=== PATIENT | male | born 1950 | race Caucasian/White ===

== ENCOUNTER 2019-09-16 06:18 | Inpatient (IN) ==
[2019-09-16 06:43] LABS: Basophils # 0.1 10*3/uL (0.0-0.2); Basophils % 0.7 % (0.0-0.8); Eosinophils % 0.1 % (0.00-10.9); Hematocrit 45.6 VOL% (42.0-52.0); Hemoglobin 15.3 GM/DL (14.0-18.0); Immature Granulocytes % 0.8 %; Immature Granulocytes Absolute 0.07 #; Lymphocytes # 1.5 10*3/uL (1.4-4.0); Mean Corpuscular HGB Conc 33.6 GM/DL (32-36); Mean Corpuscular Volume 91.4 FL (87-102); Mean Platelet Volume 9.6 FL (9.6-12.0); Monocytes % 10.4 % (1.7-12.7); Platelet Count 195 T/CUMM (130-400); Red Blood Count 4.99 MC/CUMM (3.8-5.5)
[2019-09-16] MEDS ORDERED: ACETAMINOPHEN 500 MG TABLET ONE (06:43)
[2019-09-16] MEDS ORDERED: SODIUM CHLORIDE 0.9% 1,000 ML IV STA ×2 (06:54→07:03)
[2019-09-16] MEDS ORDERED: ACETAMINOPHEN 500 MG TABLET PO STA (06:54)
[2019-09-16] MEDS ORDERED: dilTIAZem Drip 125 MG/125 ML PREMIX IV ONE (07:02)
[2019-09-16 07:03] LABS: Albumin 3.7 G/DL (3.4-5.0); Bilirubin,Total 0.5 MG/DL (0.2-1.0); Calcium 8.7 MG/DL (8.5-10.1); Osmolality,Calculated 286.1 MOS/KG (273-304); Total Protein 7.2 G/DL (6.4-8.3)
[2019-09-16] MEDS ORDERED: DILTIAZEM 50 MG/10 ML VIAL IV STA (07:03)
[2019-09-16 07:05] LABS: Troponin I 0.415 NG/ML (0.00-0.045)
[2019-09-16] MEDS ORDERED: dilTIAZem Drip 125 MG/125 ML PREMIX IV SCH (07:30)
[2019-09-16 07:32] LABS: PT Patient Result 10.4 SECS (9.6-12.2)
[2019-09-16 07:45] LABS: Apearance,Urine CLEAR (Clear); Bilirubin,Urine Negative (Negative); Blood, Urine Moderate mg/dL (Negative); Glucose,Urine (UA) Negative (Negative); Hyaline Casts,Urine 34 /LPF (0-3); Ketones,Urine Negative (Negative); Mucus,Urine Moderate /LPF (Occasional); Nitrite,Urine Negative (Negative); Protein,Urine Negative; RBC,Urine <1 /HPF (0-4); Squamous Epithelial Cell,Urine Occasional /HPF (0-10); Urine Color Yellow (Yellow); Urine Specific Gravity 1.023 (1.001-1.035); Urine Urobilinogen < 2.0 EU/DL (0.2-1.0); WBC,Urine <1 /HPF (0-6)
[2019-09-16] MEDS ORDERED: LACTULOSE 20 GM/30 ML UDCUP PO PRN (08:21)
[2019-09-16] MEDS ORDERED: ONDANSETRON 4 MG/2 ML VIAL IV PRN (08:21)
[2019-09-16 10:23] LABS: Risk Ratio 4.65; Thyroid Stimulating Hormone 0.796 uIU/ml (0.358-3.74); VLDL CHOLESTEROL 29.6 MG/DL
[2019-09-16] MEDS: SODIUM CHLORIDE 0.9% 1,000 ML IV SCH (11:01)
[2019-09-16] MEDS: CIPROFLOXACIN INJ 400 MG in PREMIX 1 EACH IV SCH (11:01)
[2019-09-16] MEDS: ENOXAPARIN 40 MG/0.4 ML SYRINGE SUBCUT SCH (11:01)
[2019-09-16] MEDS: metroNIDAZOLE INJ 500 MG in PREMIX 1 EACH IV SCH ×2 (12:50→18:07)
[2019-09-16] MEDS ORDERED: ASPIRIN EC 81 MG TABLET PO PRN (13:15)
[2019-09-16] MEDS ORDERED: NITROGLYCERIN SL 0.4 MG TABLET SL PRN (13:50)
[2019-09-16 16:36] LABS: Troponin I 0.452 NG/ML (0.00-0.045)
[2019-09-16] MEDS: ACETAMINOPHEN 325 MG TABLET PO PRN (18:58)
[2019-09-16] MEDS: DILTIAZEM CD 120 MG CAPSULE PO SCH (22:22)
[2019-09-17] MEDS: ACETAMINOPHEN 325 MG TABLET PO PRN ×3 (03:11→20:48)
[2019-09-17] MEDS: metroNIDAZOLE INJ 500 MG in PREMIX 1 EACH IV SCH ×2 (03:11→11:04)
[2019-09-17] MEDS: SODIUM CHLORIDE 0.9% 1,000 ML IV SCH ×2 (04:04)
[2019-09-17 04:05] LABS: Basophils % 0.6 % (0.0-0.8); Eosinophils # 0.1 10*3/uL (0.0-0.87); Eosinophils % 1.5 % (0.00-10.9); Hematocrit 39.5 VOL% (42.0-52.0); Immature Granulocytes % 0.3 %; Immature Granulocytes Absolute 0.02 #; Lymphocytes # 1.7 10*3/uL (1.4-4.0); Mean Corpuscular HGB Conc 32.9 GM/DL (32-36); Mean Corpuscular Volume 92.1 FL (87-102); Mean Platelet Volume 10.6 FL (9.6-12.0); Neutrophils % 60.6 % (38.7-73.9); Platelet Count 166 T/CUMM (130-400); Red Blood Count 4.29 MC/CUMM (3.8-5.5); Red Cell Distribution Width 13.2 % (9.3-17.3); White Blood Count 6.8 T/CUMM (4-12)
[2019-09-17 04:17] LABS: Calcium 8.3 MG/DL (8.5-10.1); Osmolality,Calculated 286.7 MOS/KG (273-304)
[2019-09-17] MEDS ORDERED: BENZONATATE 100 MG CAPSULE PO PRN (08:02)
[2019-09-17] MEDS: ASPIRIN EC 81 MG TABLET PO SCH (08:39)
[2019-09-17] MEDS: CIPROFLOXACIN INJ 400 MG in PREMIX 1 EACH IV SCH (08:39)
[2019-09-17] MEDS: ENOXAPARIN 40 MG/0.4 ML SYRINGE SUBCUT SCH (08:40)
[2019-09-17] MEDS: PIPERACILLIN/TAZOBACTAM 3,375 MG in SODIUM CHLORIDE 0.9% 100 ML IV SCH ×2 (11:04→18:03)
[2019-09-17] MEDS: ALBUTEROL 0.63 MG/3 ML NEB RESP TX SCH ×2 (13:08→19:03)
[2019-09-17] MEDS: DILTIAZEM CD 120 MG CAPSULE PO SCH (20:47)
[2019-09-18] MEDS: ALBUTEROL 0.63 MG/3 ML NEB RESP TX SCH ×4 (00:13→18:55)
[2019-09-18] MEDS: PIPERACILLIN/TAZOBACTAM 3,375 MG in SODIUM CHLORIDE 0.9% 100 ML IV SCH ×3 (03:15→19:36)
[2019-09-18 04:40] LABS: Basophils % 0.7 % (0.0-0.8); Eosinophils # 0.2 10*3/uL (0.0-0.87); Eosinophils % 4.3 % (0.00-10.9); Hematocrit 38.7 VOL% (42.0-52.0); Hemoglobin 12.9 GM/DL (14.0-18.0); Immature Granulocytes % 0.5 %; Immature Granulocytes Absolute 0.02 #; Lymphocytes # 1.1 10*3/uL (1.4-4.0); Lymphocytes % 27.5 % (21.2-54.2); Mean Corpuscular HGB Conc 33.3 GM/DL (32-36); Mean Corpuscular Volume 90.4 FL (87-102); Mean Platelet Volume 9.7 FL (9.6-12.0); Monocytes % 10.9 % (1.7-12.7); Neutrophils % 56.1 % (38.7-73.9); Platelet Count 157 T/CUMM (130-400); Red Blood Count 4.28 MC/CUMM (3.8-5.5); Red Cell Distribution Width 12.9 % (9.3-17.3); White Blood Count 4.1 T/CUMM (4-12)
[2019-09-18 05:01] LABS: Calcium 8.5 MG/DL (8.5-10.1); Osmolality,Calculated 284.8 MOS/KG (273-304)
[2019-09-18] MEDS: ASPIRIN EC 81 MG TABLET PO SCH (09:54)
[2019-09-18] MEDS: ENOXAPARIN 40 MG/0.4 ML SYRINGE SUBCUT SCH (09:54)
[2019-09-18] MEDS: CALCIUM CARBONATE CHEW 500 MG TABLET PO PRN (17:20)
[2019-09-18] MEDS: SIMETHICONE CHEW 125 MG TABLET PO PRN (17:20)
[2019-09-18] MEDS: DILTIAZEM CD 120 MG CAPSULE PO SCH (21:52)
[2019-09-19] MEDS: ALBUTEROL 0.63 MG/3 ML NEB RESP TX SCH ×4 (00:24→19:41)
[2019-09-19] MEDS: PIPERACILLIN/TAZOBACTAM 3,375 MG in SODIUM CHLORIDE 0.9% 100 ML IV SCH ×3 (03:02→18:33)
[2019-09-19 05:25] LABS: Basophils % 0.9 % (0.0-0.8); Eosinophils # 0.3 10*3/uL (0.0-0.87); Eosinophils % 5.8 % (0.00-10.9); Hematocrit 40.5 VOL% (42.0-52.0); Hemoglobin 13.6 GM/DL (14.0-18.0); Immature Granulocytes % 0.5 %; Immature Granulocytes Absolute 0.02 #; Lymphocytes # 1.5 10*3/uL (1.4-4.0); Lymphocytes % 35.5 % (21.2-54.2); Mean Corpuscular HGB Conc 33.6 GM/DL (32-36); Mean Corpuscular Volume 90.4 FL (87-102); Mean Platelet Volume 9.7 FL (9.6-12.0); Monocytes % 14.7 % (1.7-12.7); Neutrophils % 42.6 % (38.7-73.9); Platelet Count 189 T/CUMM (130-400); Red Blood Count 4.48 MC/CUMM (3.8-5.5); Red Cell Distribution Width 12.8 % (9.3-17.3); White Blood Count 4.3 T/CUMM (4-12)
[2019-09-19] MEDS ORDERED: FAMOTIDINE 20 MG TABLET PO ONE (06:00)
[2019-09-19 06:04] LABS: Calcium 8.9 MG/DL (8.5-10.1)
[2019-09-19] MEDS: ASPIRIN EC 81 MG TABLET PO SCH (08:42)
[2019-09-19] MEDS: ENOXAPARIN 40 MG/0.4 ML SYRINGE SUBCUT SCH (08:42)
[2019-09-19] MEDS ORDERED: LIDOCAINE 1%/EPI INJ 20 ML VIAL ONE (12:31)
[2019-09-19] MEDS ORDERED: TISSUE ADHESIVE 1 EACH APPLICATOR TOP ONE (12:31)
[2019-09-19] MEDS ORDERED: BUPIVACAINE MPF 0.25% 30 ML VIAL ONE (12:32)
[2019-09-19] MEDS ORDERED: diphenhydrAMINE 50 MG/1 ML VIAL IV PRN (15:00)
[2019-09-19] MEDS ORDERED: PROMETHAZINE INJ 25 MG in SODIUM CHLORIDE 0.9% 50 ML IV PRN (15:00)
[2019-09-19] MEDS ORDERED: ONDANSETRON 4 MG/2 ML VIAL IV PRN (15:00)
[2019-09-19] MEDS ORDERED: MEPERIDINE 25 MG/1 ML VIAL IV PRN (15:00)
[2019-09-19] MEDS ORDERED: LIDOCAINE 2% 5 ML VIAL ONE (15:01)
[2019-09-19] MEDS ORDERED: MIDAZOLAM 2 MG/2 ML VIAL ONE (15:01)
[2019-09-19] MEDS ORDERED: PROPOFOL 200 MG/20 ML VIAL IV ONE (15:01)
[2019-09-19] MEDS ORDERED: SEVOFLURANE 1 UNIT/15 MINUTE INH ONE (15:01)
[2019-09-19] MEDS ORDERED: fentaNYL 100 MCG/2 ML VIAL ONE (15:01)
[2019-09-19] MEDS ORDERED: ETOMIDATE 40 MG/20 ML VIAL IV ONE (15:01)
[2019-09-19] MEDS ORDERED: GLYCOPYRROLATE 0.4 MG/2 ML VIAL ONE ×2 (15:02)
[2019-09-19] MEDS ORDERED: NEOSTIGMINE 10 MG/10 ML VIAL ONE (15:02)
[2019-09-19] MEDS ORDERED: ROCURONIUM 100 MG/10 ML VIAL IV ONE (15:02)
[2019-09-19] MEDS ORDERED: SUCCINYLCHOLINE 200 MG/10 ML VIAL ONE (15:02)
[2019-09-19] MEDS ORDERED: PHENYLEPHRINE 1 MG/10 ML SYRINGE IV ONE (15:02)
[2019-09-19] MEDS ORDERED: MEPERIDINE 25 MG/1 ML VIAL ONE (15:08)
[2019-09-19] MEDS ORDERED: ONDANSETRON 4 MG/2 ML VIAL ONE (15:08)
[2019-09-19] MEDS: SIMETHICONE CHEW 125 MG TABLET PO PRN (16:50)
[2019-09-19 17:04] LABS: Albumin 3.1 G/DL (3.4-5.0); Bilirubin,Direct 0.5 MG/DL (0.0-0.20); Bilirubin,Indirect 0.8 MG/DL (0.0-1.0); Bilirubin,Total 1.3 MG/DL (0.2-1.0); Total Protein 6.5 G/DL (6.4-8.3)
[2019-09-19] MEDS: CALCIUM CARBONATE CHEW 500 MG TABLET PO PRN (18:44)
[2019-09-19] MEDS: DILTIAZEM CD 120 MG CAPSULE PO SCH (21:52)
[2019-09-20] MEDS: ALBUTEROL 0.63 MG/3 ML NEB RESP TX SCH ×4 (00:28→21:02)
[2019-09-20] MEDS: PIPERACILLIN/TAZOBACTAM 3,375 MG in SODIUM CHLORIDE 0.9% 100 ML IV SCH ×3 (04:30→19:00)
[2019-09-20 07:37] LABS: Basophils # 0.1 10*3/uL (0.0-0.2); Basophils % 0.8 % (0.0-0.8); Eosinophils # 0.2 10*3/uL (0.0-0.87); Eosinophils % 3.7 % (0.00-10.9); Hematocrit 43.9 VOL% (42.0-52.0); Hemoglobin 14.6 GM/DL (14.0-18.0); Immature Granulocytes % 0.6 %; Immature Granulocytes Absolute 0.04 #; Lymphocytes # 1.8 10*3/uL (1.4-4.0); Mean Corpuscular HGB Conc 33.3 GM/DL (32-36); Mean Corpuscular Volume 90.5 FL (87-102); Mean Platelet Volume 9.3 FL (9.6-12.0); Monocytes % 10.1 % (1.7-12.7); Neutrophils % 56.8 % (38.7-73.9); Platelet Count 227 T/CUMM (130-400); Red Blood Count 4.85 MC/CUMM (3.8-5.5); Red Cell Distribution Width 12.7 % (9.3-17.3); White Blood Count 6.6 T/CUMM (4-12)
[2019-09-20 08:04] LABS: Albumin 3.6 G/DL (3.4-5.0); Bilirubin,Total 1.2 MG/DL (0.2-1.0); Calcium 9.1 MG/DL (8.5-10.1); Osmolality,Calculated 272.8 MOS/KG (273-304); Total Protein 7.1 G/DL (6.4-8.3)
[2019-09-20] MEDS: ENOXAPARIN 40 MG/0.4 ML SYRINGE SUBCUT SCH (10:05)
[2019-09-20] MEDS: ASPIRIN EC 81 MG TABLET PO SCH (10:05)
[2019-09-20] MEDS: DILTIAZEM CD 120 MG CAPSULE PO SCH (20:20)
[2019-09-21] MEDS: ALBUTEROL 0.63 MG/3 ML NEB RESP TX SCH ×4 (00:51→20:18)
[2019-09-21] MEDS: PIPERACILLIN/TAZOBACTAM 3,375 MG in SODIUM CHLORIDE 0.9% 100 ML IV SCH ×3 (02:58→18:06)
[2019-09-21 05:13] LABS: Basophils # 0.1 10*3/uL (0.0-0.2); Basophils % 1.1 % (0.0-0.8); Eosinophils # 0.2 10*3/uL (0.0-0.87); Eosinophils % 4.5 % (0.00-10.9); Hematocrit 40.3 VOL% (42.0-52.0); Hemoglobin 13.5 GM/DL (14.0-18.0); Immature Granulocytes % 1.3 %; Immature Granulocytes Absolute 0.06 #; Lymphocytes # 1.5 10*3/uL (1.4-4.0); Lymphocytes % 32.2 % (21.2-54.2); Mean Corpuscular HGB Conc 33.5 GM/DL (32-36); Mean Corpuscular Volume 90.6 FL (87-102); Mean Platelet Volume 10.1 FL (9.6-12.0); Monocytes % 11.3 % (1.7-12.7); Neutrophils % 49.6 % (38.7-73.9); Platelet Count 222 T/CUMM (130-400); Red Blood Count 4.45 MC/CUMM (3.8-5.5); Red Cell Distribution Width 12.6 % (9.3-17.3); White Blood Count 4.7 T/CUMM (4-12)
[2019-09-21 05:36] LABS: Calcium 8.5 MG/DL (8.5-10.1); Osmolality,Calculated 275.5 MOS/KG (273-304)
[2019-09-21 05:40] LABS: Albumin 3.2 G/DL (3.4-5.0); Bilirubin,Direct 0.12 MG/DL (0.0-0.20); Bilirubin,Indirect 0.9 MG/DL (0.0-1.0); Total Protein 6.6 G/DL (6.4-8.3)
[2019-09-21] MEDS: ENOXAPARIN 40 MG/0.4 ML SYRINGE SUBCUT SCH (09:38)
[2019-09-21] MEDS: ASPIRIN EC 81 MG TABLET PO SCH (09:38)
[2019-09-21] MEDS: DILTIAZEM CD 120 MG CAPSULE PO SCH (20:21)
[2019-09-21] MEDS: CALCIUM CARBONATE CHEW 500 MG TABLET PO PRN (22:03)
[2019-09-22] MEDS: ALBUTEROL 0.63 MG/3 ML NEB RESP TX SCH ×4 (00:45→19:52)
[2019-09-22] MEDS: PIPERACILLIN/TAZOBACTAM 3,375 MG in SODIUM CHLORIDE 0.9% 100 ML IV SCH ×3 (03:27→18:32)
[2019-09-22 05:39] LABS: Basophils # 0.1 10*3/uL (0.0-0.2); Basophils % 1.2 % (0.0-0.8); Eosinophils # 0.3 10*3/uL (0.0-0.87); Eosinophils % 5.5 % (0.00-10.9); Hematocrit 40.7 VOL% (42.0-52.0); Hemoglobin 13.8 GM/DL (14.0-18.0); Immature Granulocytes % 1.2 %; Immature Granulocytes Absolute 0.06 #; Lymphocytes # 1.9 10*3/uL (1.4-4.0); Lymphocytes % 37.5 % (21.2-54.2); Mean Corpuscular HGB Conc 33.9 GM/DL (32-36); Mean Corpuscular Volume 90.4 FL (87-102); Mean Platelet Volume 9.9 FL (9.6-12.0); Neutrophils % 43.6 % (38.7-73.9); Platelet Count 252 T/CUMM (130-400); Red Cell Distribution Width 12.6 % (9.3-17.3); White Blood Count 4.9 T/CUMM (4-12)
[2019-09-22 05:46] LABS: INR 0.9
[2019-09-22 05:56] LABS: Calcium 9.1 MG/DL (8.5-10.1)
[2019-09-22 06:00] LABS: Albumin 3.1 G/DL (3.4-5.0); Bilirubin,Total 0.7 MG/DL (0.2-1.0); Calcium 8.9 MG/DL (8.5-10.1); Osmolality,Calculated 279.4 MOS/KG (273-304); Total Protein 6.5 G/DL (6.4-8.3)
[2019-09-22] MEDS ORDERED: INDOMETHACIN SUPP 50 MG SUPP RECTAL ONE ×2 (06:30→06:32)
[2019-09-22] MEDS ORDERED: SODIUM CHLORIDE 0.9% 1,000 ML IV SCH (09:00)
[2019-09-22] MEDS ORDERED: LIDOCAINE 100 MG/5 ML SYRINGE ONE (09:00)
[2019-09-22] MEDS ORDERED: SUCCINYLCHOLINE 200 MG/10 ML VIAL ONE (09:00)
[2019-09-22] MEDS ORDERED: PROPOFOL 200 MG/20 ML VIAL IV ONE (09:00)
[2019-09-22] MEDS ORDERED: PHENYLEPHRINE 1 MG/10 ML SYRINGE IV ONE (09:00)
[2019-09-22] MEDS ORDERED: ONDANSETRON 4 MG/2 ML VIAL ONE (09:00)
[2019-09-22] MEDS: ENOXAPARIN 40 MG/0.4 ML SYRINGE SUBCUT SCH (09:09)
[2019-09-22] MEDS: ASPIRIN EC 81 MG TABLET PO SCH (09:13)
[2019-09-22] MEDS ORDERED: LACTATED RINGERS 1,000 ML IV SCH (12:10)
[2019-09-22] MEDS ORDERED: fentaNYL 100 MCG/2 ML VIAL ONE (12:24)
[2019-09-22] MEDS ORDERED: MIDAZOLAM 2 MG/2 ML VIAL ONE (12:24)
[2019-09-22] MEDS ORDERED: SEVOFLURANE 1 UNIT/15 MINUTE INH ONE (12:25)
[2019-09-22] MEDS: CALCIUM CARBONATE CHEW 500 MG TABLET PO PRN (13:56)
[2019-09-22] MEDS: DILTIAZEM CD 120 MG CAPSULE PO SCH (21:32)
[2019-09-23] MEDS: ALBUTEROL 0.63 MG/3 ML NEB RESP TX SCH ×2 (01:22→08:02)
[2019-09-23] MEDS: PIPERACILLIN/TAZOBACTAM 3,375 MG in SODIUM CHLORIDE 0.9% 100 ML IV SCH (03:30)
[2019-09-23 06:15] LABS: Basophils # 0.1 10*3/uL (0.0-0.2); Basophils % 0.9 % (0.0-0.8); Eosinophils # 0.2 10*3/uL (0.0-0.87); Eosinophils % 3.6 % (0.00-10.9); Hematocrit 38.4 VOL% (42.0-52.0); Hemoglobin 12.9 GM/DL (14.0-18.0); Immature Granulocytes % 0.9 %; Immature Granulocytes Absolute 0.05 #; Lymphocytes # 1.7 10*3/uL (1.4-4.0); Lymphocytes % 30.7 % (21.2-54.2); Mean Corpuscular HGB Conc 33.6 GM/DL (32-36); Mean Corpuscular Volume 90.4 FL (87-102); Neutrophils % 53.9 % (38.7-73.9); Platelet Count 238 T/CUMM (130-400); Red Blood Count 4.25 MC/CUMM (3.8-5.5); Red Cell Distribution Width 12.4 % (9.3-17.3); White Blood Count 5.6 T/CUMM (4-12)
[2019-09-23 06:39] LABS: Calcium 8.5 MG/DL (8.5-10.1)
[2019-09-23 07:51] VITALS: BP 108/56
[2019-09-23] MEDS: ASPIRIN EC 81 MG TABLET PO SCH (08:58)
[2019-09-23] MEDS: ENOXAPARIN 40 MG/0.4 ML SYRINGE SUBCUT SCH (08:58)
== END 2019-09-23 10:50 | disposition home or self-care (01) | DRG 987 ==
LOC: N.ED 06:18 → N.EDINP 08:21 → N.TELEN 09:22
PROVIDERS: ADMIT Internal Medicine; ATTEND Internal Medicine
PROC: LAPCHOL (2019-09-19 13:32)
PROC: ERCPWSP (ICD-10-PCS; 2019-09-22 11:20)